=== PATIENT | male | born 1985 | race African-American/Black ===

== ENCOUNTER 2017-10-03 23:46 | Emergency (ER) | payer SELFPAY ==
[~2017-10-03] VITALS: Ht 175.3 cm; Wt 74.8 kg
[2017-10-03 23:47] VITALS: BP 109/66
--- NOTE | 2017-10-04 00:40 | Emergency Room Report ---
History of Present Illness General Chief Complaint: Alcohol Intoxication Source: Patient, EMS Present Illness HPI Is an approximately 25-year-old male brought in by EMS for alcohol intoxication. He was lying on the ground sleeping and bystander called 911. He would not give his name. He did say that he is drinking tonight. There was no trauma. History is limited because of his intoxication. Allergies: Coded Allergies: UNABLE TO ASSESS (Unverified , 10/03/17) Patient History Past Medical History: see triage record, old chart reviewed Past Surgical History: unable to obtain Pertinent Family History: unable to obtain Social History: Reports: alcohol use Immunizations: other Reviewed Nursing Documentation: PMH: Agreed; PSxH: Agreed Nursing Documentation-PMH Past Medical History: No Stated History Review of Systems All Other Systems: limited - secondary to intoxication Physical Exam Vital Signs Date Time Temp Pulse Resp B/P (MAP) Pulse Ox O2 Delivery O2 Flow Rate FiO2 10/03/17 23:38 98.4 76 16 109/66 98.4 vitals normal Sp02 EP Interpretation: reviewed, normal General Appearance: well appearing, no apparent distress, other - intoxicated Head: normocephalic, atraumatic Eyes: bilateral eye PERRL, bilateral eye EOMI ENT: hearing grossly normal, normal pharynx Neck: full range of motion, supple, no meningismus Respiratory: chest non-tender, lungs clear, normal breath sounds Cardiovascular #1: regular rate, rhythm, no murmur Gastrointestinal: normal bowel sounds, non tender, no mass, no organomegaly, no bruit, non-distended Musculoskeletal: back normal, normal range of motion Neurologic: grossly normal Skin: warm/dry Medical Decision Making Diagnostic Impression: Primary Impression: Acute alcoholic intoxication Qualified Codes: F10.929 - Alcohol use, unspecified with intoxication, unspecified ER Course Patient presents with alcohol intoxication. There is no trauma to warrant CT scan or x-rays. Patient slept through the night. He is now more clinically sober. He able to give a name and date of . We'll discharge in the morning. Last Vital Signs Date Time Temp Pulse Resp B/P (MAP) Pulse Ox O2 Delivery O2 Flow Rate FiO2 10/03/17 23:47 98.4 16 109/66 98.4 10/03/17 23:38 76 Status: improved Disposition: HOME, SELF-CARE Condition: Stable Patient Instructions: Alcohol Intoxication, [id number] Additional Instructions: Abstain from drinking to excess. Follow-up with your doctor in 7 days. Return if worse. [id number] FAULKNER M.D. Oct 04, 2017 00:40
[2017-10-04 02:34] VITALS: BP 111/76
[2017-10-04 04:45] VITALS: BP 111/76
== END 2017-10-04 04:05 | disposition home or self-care (01) ==
LOC: EDBD 23:46 → EMR 10-04 04:00
DX: F10.929 Alcohol use, unspecified with intoxication, unspecified (principal)
CPT/HCPCS: 82962; 99284